=== PATIENT | male | born 1985 | race African-American/Black ===

== ENCOUNTER 2018-05-12 03:52 | Inpatient (IN) ==
[2018-05-13] MEDS ORDERED: Acetaminophen 325 MG Tablet PO PRN (00:01)
[2018-05-13] MEDS: Morphine Inj 4 MG/ML Vial IV.PUSH PRN ×2 (02:51→05:39)
[2018-05-13] MEDS: Methocarbamol 500 MG Tablet PO SCH ×3 (05:38→21:38)
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
[2018-05-13 08:38] LABS: Baso % (Auto) 0.1 % (0.0-2.0); Eos % (Auto) 0.2 % (0.0-4.0); Hematocrit 30.3 % (39.0-51.0); Hemoglobin 10.4 gm/dL (13.0-17.0); Lymph # (Auto) 0.9 th/mm3 (1.0-4.8); Lymph % (Auto) 13.5 % (9.0-44.0); Mean Corpuscular HGB Conc 34.3 % (32.0-36.0); Mean Corpuscular Hemoglobin 31.4 pg (27.0-34.0); Mean Corpuscular Volume 91.3 fL (80.0-100.0); Mean Platelet Volume 7.9 fL (7.0-11.0); Mono # (Auto) 0.4 th/mm3 (0.0-0.9); Mono % (Auto) 6.1 % (0.0-8.0); Neut # (Auto) 5.2 th/mm3 (1.8-7.7); Neut % (Auto) 80.1 % (16.0-70.0); Platelet Count 251 th/mm3 (150-450); Red Blood Count 3.32 mil/mm3 (4.50-5.90); White Blood Count 6.5 th/mm3 (4.0-11.0)
[2018-05-13 08:40] LABS: Calcium 7.9 mg/dL (8.5-10.1); Potassium 3.5 meq/L (3.5-5.1)
[2018-05-13] MEDS: Senna/Docusate Sodium 8.6/50 MG Tablet PO SCH ×2 (09:28→21:38)
[2018-05-13] MEDS: Pantoprazole Inj 40 MG Vial IV.PUSH SCH (09:30)
--- NOTE | 2018-05-13 10:13 | P.PNOP ---
Subjective Interval history: Patient resting comfortably this morning. States he does have left forearm and right hand pain. In addition, he complains of pelvis pain. Physical Exam Vital signs: Vital Signs 05/13/18 04:00 Temperature 97.7 F Pulse Rate 90 Respiratory Rate 18 Blood Pressure 132/70 Pulse Oximetry 98 Intake & Output 05/12/18 05/13/18 05/13/18 18:59 06:59 18:59 Intake Total 720 / 720 Output Total 2475 / 2475 Balance -1755 / -1755 Weight 70.9 kg 70.9 kg Intake: Oral 720 / 720 Output: Urine 2475 / 2475 Other: # Bowel Movements 0 Narrative: Awake, alert, no acute distress Left upper extremity: Splint in place with no active drainage. Patient demonstrates positive thumbs up, okay and finger cross. Sensation appears intact. Brisk cap refill. Right upper extremity: Patient continues to have swelling over the hand with significant tenderness over the base of the fifth metacarpal. Bilateral lower extremities: Negative Homans. Pelvis pain with active range of motion of the hip and knees. Neurovascularly intact distally. Assessment and Plan - Assessment and Plan 32-year-old gentleman, postop day 1 status post open reduction internal fixation of his left radial shaft fracture with percutaneous pinning of his left DRUJ. Patient with known pelvis fractures in addition. 1. Nonweightbearing left upper extremity in splint. Splint to remain in place until follow-up. I discussed with the patient that he does have a pin which will need to be removed in approximately 4-6 weeks. 2. Nonweightbearing left lower extremity. I will discuss with Dr. Tam whether surgical fixation for the pelvis is appropriate or if this could be treated nonoperatively. 3. Lovenox for DVT prophylaxis
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
[2018-05-13] MEDS: Sod Chloride 0.9% Inj 1,000 ML IV.SIG SCH (16:03)
[2018-05-13] MEDS: Enoxaparin Inj 30 MG/0.3 ML Syringe SQ SCH ×2 (19:34→21:39)
[2018-05-14 04:40] LABS: Baso % (Auto) 0.4 % (0.0-2.0); Eos # (Auto) 0.1 th/mm3 (0.0-0.4); Eos % (Auto) 0.8 % (0.0-4.0); Hematocrit 28.9 % (39.0-51.0); Hemoglobin 9.8 gm/dL (13.0-17.0); Lymph # (Auto) 1.2 th/mm3 (1.0-4.8); Lymph % (Auto) 17.7 % (9.0-44.0); Mean Corpuscular Volume 91.3 fL (80.0-100.0); Mean Platelet Volume 7.7 fL (7.0-11.0); Mono # (Auto) 0.5 th/mm3 (0.0-0.9); Mono % (Auto) 7.6 % (0.0-8.0); Neut % (Auto) 73.5 % (16.0-70.0); Platelet Count 229 th/mm3 (150-450); Red Blood Count 3.17 mil/mm3 (4.50-5.90); Red Cell Distribution Width 13.2 % (11.6-17.2); White Blood Count 6.8 th/mm3 (4.0-11.0)
[2018-05-14 04:44] LABS: Calcium 7.9 mg/dL (8.5-10.1); Carbon Dioxide 26.1 meq/L (21.0-32.0); Potassium 3.5 meq/L (3.5-5.1)
[2018-05-14] MEDS: Sod Chloride 0.9% Inj 1,000 ML IV.SIG SCH ×4 (05:34→18:19)
[2018-05-14] MEDS: Methocarbamol 500 MG Tablet PO SCH ×3 (06:46→20:59)
--- NOTE | 2018-05-14 08:13 | P.PNOP ---
Subjective Interval history: Patient resting, this morning. Physical Exam Vital signs: Vital Signs 05/13/18 10:30 05/13/18 12:00 05/13/18 14:40 Temperature 98.9 F Pulse Rate 100 H Respiratory Rate 16 18 16 Blood Pressure 139/69 Pulse Oximetry 98 05/13/18 15:11 05/13/18 16:00 05/13/18 19:17 Temperature 98.5 F 100 F H Pulse Rate 92 H 95 H Respiratory Rate 18 18 Blood Pressure 143/73 H 142/68 H Pulse Oximetry 97 97 97 05/13/18 19:18 05/14/18 00:02 05/14/18 04:00 Temperature 100.6 F H 99.6 F Pulse Rate 89 91 H Respiratory Rate 16 18 19 Blood Pressure 152/62 H 131/64 Pulse Oximetry 97 97 Intake & Output 05/13/18 05/14/18 05/14/18 18:59 06:59 18:59 Intake Total 1100 / 1100 1680 / 1680 Output Total 2100 / 2100 2475 / 2475 Balance -1000 / -1000 -795 / -795 Weight 70.9 kg Intake: IV 100 / 100 1200 / 1200 NS Inj 1,000 ML @ 100 mls/hr IV 1000 / 1000 .SIG .Q10H KARYN Rx#:[id number] Ancef Inj 1,000 MG In NS Inj 100 / 100 200 / 200 100 ML @ 200 mls/hr IV.SIG Q8H KARYN Rx#:[id number] Oral 1000 / 1000 480 / 480 Output: Urine 1100 / 1100 2475 / 2475 Urine Amount (Catheter) 1000 / 1000 Indwelling Urethral Catheter 1000 / 1000 Other: Date of Last Bowel Movement 05/12/18 05/11/18 # Bowel Movements 0 0 Narrative: Awake, alert, no acute distress Left upper extremity: Dressing in place along with splint. No significant drainage. Patient is able to wiggle fingers and sensation intact. Brisk cap refill. Right upper extremity: Splint has been placed by hand surgeon. Defer treatment to hand surgery Bilateral lower extremities: Tenderness and pain around the pelvis with range of motion. Patient is neurovascularly intact distally. - Urinary Catheter Management Indwelling Urethral Catheter Cath placed during this visit: no Assessment and Plan - Assessment and Plan 32-year-old gentleman, postop day 2 status post open reduction internal fixation of his left radial shaft fracture with percutaneous pinning of his left DRUJ. Patient with known pelvis fractures in addition. 1. Nonweightbearing left upper extremity in splint. Splint to remain in place until follow-up. I discussed with the patient that he does have a pin which will need to be removed in approximately 4-6 weeks. 2. Toe-touch left lower extremity. Imaging reviewed with Dr. Tam who agrees that nonoperative treatment for this pelvis injury is appropriate. I discussed with the patient that he should remain toe-touch weightbearing to this left lower extremity for at least 6-8 weeks while this heals. 3. Lovenox for DVT prophylaxis 4. Physical therapy for mobilization. 5. Patient may follow up in my office in 2 weeks should he remain in the area, however, he is planning to return to [place] and I've encouraged him to follow- up with his orthopedic surgeon there within 2 weeks.
[2018-05-14] MEDS: Pantoprazole Inj 40 MG Vial IV.PUSH SCH (08:14)
[2018-05-14] MEDS: Senna/Docusate Sodium 8.6/50 MG Tablet PO SCH ×2 (08:15→20:55)
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
[2018-05-14] MEDS: Enoxaparin Inj 30 MG/0.3 ML Syringe SQ SCH ×2 (09:29→23:46)
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
--- NOTE | 2018-05-14 14:38 | P.PN ---
Subjective Interval history: complaint with splint complains of mild pain right hand Physical Exam Vital signs: Vital Signs 05/13/18 14:40 05/13/18 15:11 05/13/18 16:00 Temperature 98.5 F Pulse Rate 92 H Respiratory Rate 16 18 Blood Pressure 143/73 H Pulse Oximetry 97 97 05/13/18 19:17 05/13/18 19:18 05/14/18 00:02 Temperature 100 F H 100.6 F H Pulse Rate 95 H 89 Respiratory Rate 18 16 18 Blood Pressure 142/68 H 152/62 H Pulse Oximetry 97 97 05/14/18 04:00 05/14/18 08:46 Temperature 99.6 F Pulse Rate 91 H Respiratory Rate 19 16 Blood Pressure 131/64 Pulse Oximetry 97 Intake & Output 05/13/18 05/14/18 05/14/18 18:59 06:59 18:59 Intake Total 1100 / 1100 1680 / 1680 Output Total 2100 / 2100 2475 / 2475 400 / 400 Balance -1000 / -1000 -795 / -795 -400 / -400 Weight 70.9 kg Intake: IV 100 / 100 1200 / 1200 NS Inj 1,000 ML @ 100 mls/hr IV 1000 / 1000 .SIG .Q10H KARYN Rx#:[id number] Ancef Inj 1,000 MG In NS Inj 100 / 100 200 / 200 100 ML @ 200 mls/hr IV.SIG Q8H KARYN Rx#:[id number] Oral 1000 / 1000 480 / 480 Output: Urine 1100 / 1100 2475 / 2475 Urine Amount (Catheter) 1000 / 1000 400 / 400 Indwelling Urethral Catheter 1000 / 1000 400 / 400 Other: Date of Last Bowel Movement 05/12/18 05/11/18 # Bowel Movements 0 0 - Detailed Upper Extremity Exam Comments: right hand: splint in place intact distal circulation intact distal sensation - Urinary Catheter Management Indwelling Urethral Catheter Cath placed during this visit: no Results - Labs CBC & Chem 7: 05/14/18 03:57 05/14/18 03:57 Laboratory Results - last 24 hr 05/14/18 05/14/18 05/14/18 03:57 03:57 03:57 WBC 6.8 RBC 3.17 L Hgb 9.8 L Hct 28.9 L MCV 91.3 MCH 31.0 MCHC 34.0 RDW 13.2 Plt Count 229 MPV 7.7 Neut % (Auto) 73.5 H Lymph % (Auto) 17.7 Stark % (Auto) 7.6 Eos % (Auto) 0.8 Baso % (Auto) 0.4 Neut # (Auto) 5.0 Lymph # (Auto) 1.2 Stark # (Auto) 0.5 Eos # (Auto) 0.1 Baso # (Auto) 0.0 WBC Differential . Differential Comment Auto diff final Sodium 140 Potassium 3.5 Chloride 106 Carbon Dioxide 26.1 Anion Gap 8 BUN 4 L Creatinine 0.95 Estimated GFR 83 L Random Glucose 98 Calcium 7.9 L Magnesium 2.0 - Imaging x-ray right hand: fifth metacarpal base fracture extraarticular with mild translation Assessment and Plan - Assessment (1) Fracture of fifth metacarpal bone of right hand Code(s): S62.306A - Unspecified fracture of fifth metacarpal bone, right hand, initial encounter for closed fracture Status: Acute - Plan continue with short arm splint range of motion exercises nonweight bearing right hand follow up in office in one week time (1) Fracture of fifth metacarpal bone of right hand Qualifiers: Encounter type: initial encounter Fracture type: closed Metacarpal location : base Fracture alignment: nondisplaced Qualified Code(s): S62.346A - Nondisplaced fracture of base of fifth metacarpal bone, right hand, initial encounter for closed fracture
[2018-05-15] MEDS: Morphine Inj 4 MG/ML Vial IV.PUSH PRN (03:47)
[2018-05-15] MEDS: Methocarbamol 500 MG Tablet PO SCH (05:30)
[2018-05-15 06:41] LABS: Anion Gap 8 meq/L (5-15); Blood Urea Nitrogen 6 mg/dL (7-18); Calcium 8.3 mg/dL (8.5-10.1); Carbon Dioxide 26.9 meq/L (21.0-32.0); Chloride 105 meq/L (98-107); Glomerular Filtration Rate Greater Than 89 mL/min (>89); Glucose,Random 94 mg/dL (74-106); Sodium 140 meq/L (136-145)
[2018-05-15] MEDS: Enoxaparin Inj 30 MG/0.3 ML Syringe SQ SCH (08:32)
[2018-05-15] MEDS: Senna/Docusate Sodium 8.6/50 MG Tablet PO SCH (08:32)
[2018-05-15] MEDS: Pantoprazole Inj 40 MG Vial IV.PUSH SCH (08:32)
[2018-05-15] MEDS: Sod Chloride 0.9% Inj 1,000 ML IV.SIG SCH (08:38)
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
== END 2018-05-15 16:30 | disposition home or self-care (01) ==
LOC: N06 05:37 → EDBD 05:37
PROVIDERS: ADMIT Surgery; ATTEND Surgery